=== PATIENT | male | born 1995 | race Caucasian/White ===

== ENCOUNTER → 2024-11-07 15:24 | Outpatient (REF) | payer BC, SELFPAY | LOC: HWRAD 15:24 | PROVIDERS: ATTENDING PHYSICIAN Nurse Practitioner Family | DX: R05.3 Chronic cough (principal) | CPT/HCPCS: 71046 ==

== ENCOUNTER → 2025-07-11 07:27 | Outpatient (REF) | payer BC, SELFPAY | LOC: HWRAD 07:27 | PROVIDERS: ATTENDING PHYSICIAN Nurse Practitioner Family; FAMILY PHYSICIAN Family Medicine | DX: R74.01 Elevation of levels of liver transaminase levels (principal) | CPT/HCPCS: 76700 ==